=== PATIENT | female | born 1965 | race Caucasian/White ===

== ENCOUNTER → 2016-09-13 | Outpatient (CLI) | payer OTHER | LOC: FIMAGING 08:14 | PROVIDERS: ATTEND Obstetrics & Gynecology | DX: Z12.31 Encounter for screening mammogram for malignant neoplasm of breast (principal) | CPT/HCPCS: G0202 ==

== ENCOUNTER 2016-09-29 12:50 | Emergency (ER) | payer OTHER ==
--- NOTE | 2016-09-29 13:30 | EDPHY ---
H & P Stated Complaint: felt lightheaded and passed out 1030 this am Source: Patient Exam Limitations: No limitations - Personal History Current Tetanus/Diphtheria Vaccine: Yes - Medical/Surgical History Other PMH: acoustic neuroma removal. epilepsy. pacemaker-asystole w seizures - Family History Significant Family History: No pertinent family hx - Social History Smoking Status: Never smoked Alcohol Use: Occasionally Drug Use: None Time Seen by Provider: 09/29/16 13:02 HPI/ROS: This patient had an LOC today that she attributes to seizure/syncope. 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 She has had similar episodes before. Her background history is a bit complicated. She explains that she was diagnosed with a L. 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 She relates that she had a cold sore around that time and unfortunately developed a HSV meningitis/cephalitis resulting in repeat hospitalization and seizures. 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 She is treated on lamotrigine 200 mg XR currently and a [employer] subpectoral pacemaker that was placed in July 2016 at [facility] by Dr. Hurst. Today is the 1st episode of LOC (that she suspects is a recurrent sz/syncope) since the pacer was placed. While she did strike her head from the episode, she explains that she had only a fleeting discomfort to her head and now reports no headache. The incident occurred shortly prior to arrival. She reports compliance with her lamotrigine. ROS: No recent fevers or chills. No other constitutional symptoms. HEENT: No recent URI symptoms or other complaints. She did not bite her tongue Musculoskeletal: She denies any neck or back pain. No injuries. Pulmonary: No cough shortness of breath Cardiovascular: She did notice any heart palpitations. She feels that she had mild chest tightness at times yesterday. She wonders if this may be associated with poison kayce in her leg as she once had poison kayce and felt slight wheezing or tightness in her chest associated with it. Integumentary: Patient reports a skin rash for 2 weeks to the left leg that is been increasing in intensity with intense itching after [place] whacking in [facility] [place] 2 weeks ago. GI: No nausea or vomiting. No abdominal pain. No incontinence. : No complaints no incontinence. Neuro: She reports no new neuro symptoms. She has no visual complaints she has baseline left facial weakness since the surgery that is unchanged. No recent insomnia. No obvious triggers for seizure. No other complaints 10 point ROS is otherwise negative. (Evaristo Rodriguez) - Medical/Surgical History PMH: Insular epilepsy Acoustic neuroma with excision Pacemaker (Evaristo Rodriguez) - Social History Additional Social History: She works as an orthopedic physical therapist She can think of any obvious triggers for seizure.-minimal caffeine intake no difficulty with sleep recently (Evaristo Rodriguez) - Physical Exam Exam: Physical exam: Vital signs are normal General: Patient is in no acute distress. HEENT: Is no external evidence of trauma on exam. Nose atraumatic. Ears: Clear bilaterally with no hemotympanum. Oropharynx: No dental trauma or malocclusion. No intraoral lacerations. Eyes: Pupils are equal and reactive to light. Extraocular motions are intact. Optic fundi: Clear with no papilledema or hemorrhage. Neck: Trachea is midline with no stridor. The patient has no midline neck tenderness and retains a full range of motion without increase in pain. Lungs: Clear to auscultation bilaterally Cardiac: Regular rate and rhythm no murmur gallop or rub. Chest: Nontender. Abdomen: Soft nontender no organomegaly Back: Nontender Skin: Patient has erythematous papular rash the cholecystic to a single group of lesions with superficial crusting to the lateral aspect of the left leg. No petechia or purpura Extremities: Atraumatic Neuro: GCS of 15. Cranial nerves II through XII intact except for baseline left facial palsy. Cerebellar exam is normal as judged by symmetric rapid hand movements bilaterally. No pronator drift. No other sensory or motor deficits are appreciated. Initial differential diagnosis: Insular epilepsy with asystole and LOC, minor head injury, vasovagal syncope, concussion, toxicodendron rash versus other atopic dermatitis (Evaristo Rodriguez) Constitutional: Initial Vital Signs Temperature (C) 36 C /30/17 12:55 Heart Rate 67 06/30/17 12:55 Respiratory Rate 18 09/29/16 12:55 Blood Pressure 126/80 H 09/29/16 12:55 O2 Sat (%) 97 09/29/16 12:55 O2 Delivery Mode Room Air Allergies/Adverse Reactions: minocycline Allergy (Verified 09/29/16 13:01) Home Medications: Medication Instructions Recorded Lamotrigine 09/29/16 lamoTRIgine [Lamotrigine] 50 mg PO DAILY #30 tab.er.24 09/29/16 predniSONE 40 mg PO DAILY #17 tab 09/29/16 Medical Decision Making - Diagnostics EKG Interpretation: 12 lead EKG performed at 1:39 p.m. reveals sinus rhythm at 60 Intervals: Normal throughout [place]: Normal throughout ST segments: Normal throughout Overall assessment- normal EKG (Evaristo Rodriguez) ED Course/Re-evaluation: Patient is placed on a monitor and remained stable without ectopy Discussion: Patient here with unusual insular epilepsy associated with episodes of asystole who had a pacemaker placed in July-[employer] in hopes of preventing syncope associated with her insular epilepsy with an episode of syncope today with brief LOC. While she struck her head, no evidence of significant head injury today with no current headache, amnesia or other concerning findings. Patient warrants pacemaker interrogation to rule out malfunction. Differential diagnosis includes potential asystole presyncope without pacer firing verses vasovagal syncope. I spoke with Dr. Kendall Dunn, dough molder hand on-call for Dr. Hurst at 13 50 who agrees with the plan to interrogate the pacemaker prior to discharging the patient due to concern for potential nonfunctioning pacer given episode of syncope versus vasovagal syncope. We also paged the patient's neurologist at 1:45 p.m. I spoke with the [employer] operators well at 1:45 p.m. history that she will page the [employer] wrap to come to our location to interrogate the pacer I spoke with Dr. Billings's-patient's neurologist at 2:20 p.m. or so and given the absence of any obvious triggers, she recommends that we increase lamotrigine dose to 250 mg. I discussed this the patient understands plan. At 3:00 p.m. I discussed the case with the oncoming emergency physician-Dr. Fields - patient awaits pacer interrogation by the [employer] rep. (Evaristo Rodriguez) - Data Points Laboratory Results: Laboratory Results 09/29/16 13:45 09/29/16 13:45 Departure - Departure Disposition: Home, Routine, Self-Care Clinical Impression: Toxicodendron dermatitis Syncope Qualifiers: Syncope type: unspecified Qualified Code(s): R55 - Syncope and collapse Minor head injury Qualifiers: Encounter type: initial encounter Qualified Code(s): S00.90XA - Unspecified superficial injury of unspecified part of head, initial encounter Condition: Good Instructions: Poison Kayce (ED), Head Injury (ED), Epilepsy (ED) Additional Instructions: Diagnoses: 1. Syncope 2. Epilepsy 3. Minor head injury 4. Toxicodendron dermatitis (poison kayce) Plan: Increase her lamotrigine 250 mg XR day. Prednisone for rash and itching. After today's dose chart take subsequent doses in the morning after breakfast Antihistamine in addition as needed for itching Drink plenty fluids Follow up with your dough molder hand and with your neurologist. Go the emergency department for any significant recurrent symptoms despite the treatment plan. Referrals: Roberta Mckenna MD [Primary Care Provider] - As per Instructions Prescriptions: lamoTRIgine [Lamotrigine] 50 mg PO DAILY #30 tab.er.24 predniSONE 40 mg PO DAILY #17 tab
--- NOTE | 2016-09-29 13:41 | CPEKG ---
Heart Rate: 60 RR Interval: 1000 P-R Interval: 136 QRSD Interval: 88 QT Interval: 420 QTC Interval: 420 P [place]: 70 QRS [place]: 80 T Wave [place]: 62 EKG Severity - NORMAL ECG - EKG Impression: SINUS RHYTHM Electronically Signed By: Kendell Darden 02-Oct-2016 08:11:47
[2016-09-29 13:53] LABS: % IMMATURE GRANULYOCYTES 0.2 % (0.0-1.1); ABSOLUTE IMMATURE GRANULOCYTES 0.01 10^3/uL (0.00-0.10); ADD DIFF? NO; ADD MORPH? NO; ADD SCAN? NO; ATYPICAL LYMPHOCYTE FLAG 0 (0-99); FRAGMENT RBC FLAG 0 (0-99); HEMATOCRIT 37.8 % (38.0-47.0); HEMOGLOBIN 13.1 g/dL (12.6-16.3); LEFT SHIFT FLG 0 (0-99); LIPEMIA HEMOLYSIS FLAG 90 (0-99); MEAN CELL HEMOGLOBIN 30.4 pg (27.9-34.1); MEAN CELL HEMOGLOBIN CONCENTR. 34.7 g/dL (32.4-36.7); MEAN CELL VOLUME 87.7 fL (81.5-99.8); MEAN PLATELET VOLUME 10.3 fL (8.7-11.7); PLATELET CLUMPS FLAG 0 (0-99); PLATELET COUNT 247 10^3/uL (150-400); RED BLOOD CELL COUNT 4.31 10^6/uL (4.18-5.33); RED CELL DISTRIBUTION WIDTH 12.4 % (11.5-15.2)
[2016-09-29 14:04] LABS: ANION GAP 10 mEq/L (8-16); CALCIUM 9.3 mg/dL (8.5-10.4); CARBON DIOXIDE 26 mEq/l (22-31); CHLORIDE 104 mEq/L (97-110); CREATININE 0.7 mg/dL (0.6-1.0); GLOMERULAR FILTRATION RATE > 60; GLUCOSE 87 mg/dL (70-100); POTASSIUM 4.1 mEq/L (3.5-5.2); SODIUM 140 mEq/L (134-144)
[2016-09-29 16:05] VITALS: RESP 16
[2016-09-29 16:06] VITALS: BP 93/70; PULSE 67; TEMP 98.6; O2SAT 97
== END 2016-09-29 16:08 | disposition home or self-care (01) ==
LOC: CED 12:50
DX: S09.90XA Unspecified injury of head, initial encounter (principal); R55 Syncope and collapse; L23.7 Allergic contact dermatitis due to plants, except food; Z95.0 Presence of cardiac pacemaker; W01.198A Fall on same level from slipping, tripping and stumbling with subsequent striking against other object, initial encounter; Y92.89 Other specified places as the place of occurrence of the external cause; Y99.0 Civilian activity done for income or pay; Y93.89 Activity, other specified
CPT/HCPCS: 80048-PO; 80175-90; 85025-PO

== ENCOUNTER → 2016-12-27 | Outpatient (CLI) | payer OTHER | LOC: FIMAGING 08:51 | PROVIDERS: ATTEND Obstetrics & Gynecology | DX: Z13.820 Encounter for screening for osteoporosis (principal); M85.80 Other specified disorders of bone density and structure, unspecified site ==

== ENCOUNTER → 2017-09-18 | Outpatient (CLI) | payer OTHER | LOC: CIMAGING 09:53 | PROVIDERS: ATTEND Obstetrics & Gynecology | DX: Z12.31 Encounter for screening mammogram for malignant neoplasm of breast (principal) ==

== ENCOUNTER → 2018-09-19 | Outpatient (CLI) | payer OTHER | LOC: FIMAGING 09:47 ==